=== PATIENT | male | born 1985 | race Caucasian/White ===

== ENCOUNTER 2017-08-17 11:41 | Day surgery (SDC) | payer OTHER ==
[~2017-08-17] VITALS: Ht 182.9 cm; Wt 136.1 kg
[2017-08-17] MEDS ORDERED: OMEPRAZOLE20 MG PO (12:20)
--- NOTE | 2017-08-17 14:14 | NUR ---
08/17/17 1413 Hodan Arrieta DC
--- NOTE | 2017-08-17 15:16 | NUR ---
1505: PATIENT BACK IN DAY SURGERY ROOM FROM PACU. DROWSY. C/O PAIN 08/23. DENIES NAUSEA AT THIS TIME. TROCAR SITES X 4 WITH SCANT AMOUNT OF RED DRAINAGE. LEFT HAND IV SITE WNL. SCDs ON. GUARDS AT BEDSIDE.
--- NOTE | 2017-08-17 16:28 | NUR ---
1600: PATIENT TOLERATED CRACKERS, JELLO, AND WATER. MORE ALERT AND AWAKE. 1610: MEDICATED FOR PAIN WITH PO DILAUDID. DISCHARGE INSTRUCTIONS GIVEN TO PATIENT. PRINTED INSTRUCTIONS WITH ENVELOPE AND PICTURES GIVEN TO GUARDS. IV DC'D WNL. TIP INTACT. DRESSING APPLIED. 1620: PATIENT STOOD AND BEDSIDE AND WALKED AROUND ROOM. GAIT STEADY DENIED DIZZINESS. DRESSED WITH HELP FROM GUARDS. 1625: PATIENT DC'D BACK TO [facility] VIA WHEELCHAIR WITH GUARDS.
--- NOTE | 2017-08-18 12:40 | OR ---
[facility] [address] [place], [place] [address] Signed DATE OF OPERATION: 08/17/2017 SURGEON: Jose Klein MD PREOPERATIVE DIAGNOSES: 1. Morbid obesity. 2. Symptomatic gallstones. 3. Recent marked elevation of liver enzymes (alkaline phosphatase, liver enzymes, and bilirubin). POSTOPERATIVE DIAGNOSIS: Chronic calculous cholecystitis. No evidence of common duct stones or dilatation. PROCEDURE: 1. Laparoscopic cholecystectomy with intraoperative cholangiogram (prolonged complicated and difficult on the basis of his massive obesity, but was accomplished safely. 2. Surgeon-directed fluoroscopy. SURGEON: Jose Klein MD. ANESTHESIA: General endotracheal (Leigha Tidwell CRNA). INDICATION: This 32-year-old white man is incarcerated at [facility], and a patient of Dr. Kendrick. He has had episodes of epigastric and right subcostal pain over time, which have recently been proven to be associated with gallstones on gallbladder ultrasound. His common bile duct was said to be enlarged in diameter according to Dr. Karan Felipe, radiologist, though documented diameter of common duct was only 5.6 mm. Whether there was a typo in the report and the duct was 15.5 mm is uncertain. He recently had an episode of rather severe pain in the following day underwent his preoperative lab studies, which are reviewed today showing markedly elevated bilirubin at greater than 4.5, and liver enzymes that were elevated including alkaline phosphatase. Notably, liver enzymes just prior to this set were entirely normal. His clinical examination today shows him to be free of jaundice in any distress at all. Concern is maintained, he may have passed a common duct stone or have common duct stones Electronically Signed By: JOSE KLEIN MD 08/18/17 5490 PATIENT NAME: EVA CHÁVEZ OPERATIVE REPORT DATE OF : 81 PHYSICIAN: JOSE KLEIN MD REPORT #: [id number] REPORT IS CONFIDENTIAL AND NOT TO BE RELEASED WITHOUT AUTHORIZATION [facility] [address] [place], [place] [address] Signed as well currently. It is our intention today to do cholecystectomy preferred by laparoscopic approach and common duct exploration as necessary. A laparoscopic approach to that operation would be considered as well though an open procedure may be necessary. We reviewed this in detail before the operation. The risks of bleeding, infection, bile duct injury, and so on, were also reviewed. He understood and wished to proceed. FINDINGS: The liver looked reasonably normal despite his obesity. Although, he is nearly 300 pounds now, he was previously over 500 pounds and would be considered a better candidate now than he was in the past. In any case, the gallbladder was chronically and subacutely inflamed. Multiple small stones greater than 40 in number were noted. To my surprise (and relief), the common duct was free of any sign of impediment, filling defect, or other problem. There was no sign of common duct stones or need for common duct exploration. Operation was carried out in a conventional way that was prolonged and difficult on the basis of the significant obesity. DESCRIPTION OF PROCEDURE: The patient was brought to the operating room and given a general endotracheal anesthetic. Given the probability or possibility of common duct exploration, a Hawthorne catheter was additionally placed. After satisfactory anesthesia, the abdomen was prepared with a chlorhexidine solution and draped sterilely. He received preoperative antibiotic Ancef. Sequential compression device stockings used and heparin subcutaneously administered. Due to his large abdominal girth and so forth, a supraumbilical incision was made and using an open Myron cannula technique, the abdomen was entered and pneumoperitoneum was achieved to a level of 14 mmHg of carbon dioxide gas. Intraabdominal inspection showed no sign of ascites or carcinomatosis. The liver looked reasonably normal despite his obesity. A portion of the gallbladder was visualized and found to be subacutely inflamed. Three additional trocars were placed in usual configuration under direct visualization including the epigastric, right midclavicular, and right anterior axillary line. Gallbladder was elevated cephalad and the omental adhesions were taken down with blunt and electrocautery dissection with all due care. Further elevation of the gallbladder was ultimately able to be undertaken. The infundibulum was meticulously dissected free from surrounding fatty tissue. A fan retractor was not required once the gallbladder was elevated more cephalad, the gallbladder was retracted laterally and using blunt and electrocautery dissection, the triangle of Calot was dissected free. Despite a fair amount of intraabdominal fat, good anatomy was demonstrated. The cystic duct was well Electronically Signed By: JOSE KLEIN MD 08/18/17 1240 PATIENT NAME: EVA CHÁVEZ OPERATIVE REPORT DATE OF : 81 PHYSICIAN: JOSE KLEIN MD REPORT #: [id number] REPORT IS CONFIDENTIAL AND NOT TO BE RELEASED WITHOUT AUTHORIZATION [address] [address] Signed demonstrated as was the cystic artery or its dominant branch at least. The cystic artery was doubly clipped and divided. A clip was applied across gallbladder cystic duct junction after ascertaining completely the regional anatomy including the critical view. A transverse choledochotomy was made in the cystic duct. Retrograde milking of the cystic duct allowed for egress of clear yellow bile. An V[place]ira cholangiocatheter was passed down the cystic duct without problem and infused without resistance. Intraoperative cholangiography was then undertaken with surgeon directed fluoroscopy. Free flow of contrast was noted into the biliary tree with prompt emptying into the duodenum. The cystic duct was rather lengthy. There were no biliary anomalies. There is certainly no sign of common duct obstruction or filling defect in any way. A different angle was taken with the fluoroscope to be certain there was no sign of filling defect elsewhere and that was confirmed and there was no sign of problem with the biliary anatomy or filling defect. This was quite a relief under the circumstances. The catheter was removed and the cystic duct was triply clipped and the cystic duct divided. The gallbladder was dissected free in a retrograde fashion using electrocautery. Gallbladder was placed in the endobag and extracted through the infraumbilical port site put on the back table and found to have numerous dark 1/2 to 1 cm gallstones. Mucosa showed no sign of neoplasm. Irrigation was undertaken in the subhepatic space. There was no sign of bile leak, bleeding, or other problems. Photographs were taken throughout the operation. Excess irrigation fluid was suctioned free and the upper abdominal trocars removed under direct visualization showing no sign of bleeding. The infraumbilical Myron cannula was removed. The fascial incision reapproximated with interrupted 0 Vicryl suture. A 20 mL of 0.25% Marcaine with epinephrine was injected locally. Irrigation was undertaken in the trocar sites and skin closed with interrupted 3-0 Vicryl. Steri-Strips were applied. The Hawthorne catheter was removed. The patient was ultimately taken to recovery room in good condition having suffered no known complications. Sponge, needle, and instruments counts were correct x3. Jose Klein MD JM/MODL Electronically Signed By: JOSE KLEIN MD 08/18/17 1240 PATIENT NAME: EVA CHÁVEZ OPERATIVE REPORT DATE OF : 81 PHYSICIAN: JOSE KLEIN MD REPORT #: [id number] REPORT IS CONFIDENTIAL AND NOT TO BE RELEASED WITHOUT AUTHORIZATION [address] [address] Signed /[id number] cc: William Kendrick MD Electronically Signed By: JOSE KLEIN MD 08/18/17 1240 PATIENT NAME: EVA CHÁVEZ OPERATIVE REPORT DATE OF : 81 PHYSICIAN: JOSE KLEIN MD REPORT #: [id number] REPORT IS CONFIDENTIAL AND NOT TO BE RELEASED WITHOUT AUTHORIZATION
== END 2017-08-17 16:25 | disposition home or self-care (01) ==
LOC: DS 11:41
PROVIDERS: Surgery
PROC: BF12YZZ Fluoroscopy of Gallbladder using Other Contrast (ICD-10-PCS; 2017-08-17)
PROC: 0FT44ZZ Resection of Gallbladder, Percutaneous Endoscopic Approach (ICD-10-PCS; principal; 2017-08-17 12:15)
DX: K80.10 Calculus of gallbladder with chronic cholecystitis without obstruction (principal); E66.01 Morbid (severe) obesity due to excess calories; K21.9 Gastro-esophageal reflux disease without esophagitis; Z88.8 Allergy status to other drugs, medicaments and biological substances; Z79.899 Other long term (current) drug therapy; Z68.41 Body mass index [BMI] 40.0-44.9, adult
CPT/HCPCS: 00790; 36415; 74300; 80053; 82247; 82465; 83615; 84100; 84478; 84550; J0330; J0690; J1100; J1170; J1644; J1885; J2250; J2405; J2550; J2704; J3010; J7120; Q9967

== ENCOUNTER 2020-02-04 16:47 | Emergency (ER) | payer OTHER ==
[~2020-02-04] VITALS: Ht 182.9 cm; Wt 136.1 kg
[~2020-02-04 16:47] MED LIST: OMEPRAZOLE20 MG PO
--- NOTE | 2020-02-05 06:25 | EKG ---
[facility] [address] [facility] [place] [address] Signed Normal sinus rhythm Rightward axis T wave abnormality, consider inferior ischemia Abnormal ECG No previous ECGs available Confirmed by BRAN MARES MD ([id number]) on 02/05/2020 6:25:24 AM Electronically Signed By: BRAN MARES MD 02/05/20624 PATIENT NAME: EVA CHÁVEZ Electrocardiogram DATE OF : 81 PHYSICIAN: BRAN MARES MD REPORT #: [id number] REPORT IS CONFIDENTIAL AND NOT TO BE RELEASED WITHOUT AUTHORIZATION
== END 2020-02-04 20:23 | disposition home or self-care (01) ==
LOC: ED 16:47
DX: B34.9 Viral infection, unspecified (principal); I10 Essential (primary) hypertension; Z87.891 Personal history of nicotine dependence; Z88.8 Allergy status to other drugs, medicaments and biological substances; Z20.828 Contact with and (suspected) exposure to other viral communicable diseases
CPT/HCPCS: 71045; 80053; 81001; 83605; 85025; 93005; 93010; 96360; 99284-25; C9803; J7030; U0002